=== PATIENT | female | born 1990 | race Caucasian/White ===

== ENCOUNTER 2020-01-29 16:11 | Outpatient (CLI) | payer BC, SELFPAY ==
[2020-01-29 17:39] LABS: SARS-CoV-2 Ag Positive (Negative)
== END 2020-01-29 16:12 | disposition home or self-care (01) ==
LOC: CHSLAB 16:17
PROVIDERS: PCP Internal Medicine; Visit Provider Internal Medicine
DX: U07.1 COVID-19 (principal); R05 Cough; R50.9 Fever, unspecified
CPT/HCPCS: 87426